=== PATIENT | male | born 1985 | race Caucasian/White ===

== ENCOUNTER 2018-08-28 08:05 | Day surgery (SDC) | payer OTHER ==
[2018-08-18 16:26] VITALS: BMI 28.6
[2018-08-28] MEDS ORDERED: BUPIVACAINE HCL/EPINEPHRINE/PF 30 ML VIAL IJ ONE (10:50)
[2018-08-28] MEDS ORDERED: PROPOFOL 20 ML ONE ×7 (10:59→11:45)
[2018-08-28] MEDS ORDERED: MIDAZOLAM HCL 2 MG/2 ML SINGLE DOSE VIAL ONE (11:00)
[2018-08-28] MEDS ORDERED: DEXAMETHASONE SOD PHOSPHATE 4 MG/1 ML VIAL ONE (11:04)
[2018-08-28] MEDS ORDERED: ONDANSETRON 4 MG/2 ML VIAL ONE (11:04)
[2018-08-28] MEDS ORDERED: ceFAZolin SODIUM 1 GM VIAL ONE (11:04)
[2018-08-28] MEDS ORDERED: LIDOCAINE HCL/PF 2% SDV 5ML VIAL ONE (11:04)
[2018-08-28] MEDS ORDERED: oxyCODONE HCL 5 MG TABLET PO PRN (12:22)
[2018-08-28] MEDS ORDERED: ONDANSETRON 4 MG/2 ML VIAL IVPUSH PRN (12:22)
[2018-08-28] MEDS ORDERED: LACTATED RINGERS SOLUTION 1,000 ML IV SCH (12:30)
--- NOTE | 2018-08-28 12:37 | OP ---
Operative Note - Note: Operative Date: 08/28/18 Pre-Operative Diagnosis: left knee MMT, trochlea cartilage defect Operation: LKA, PMM, microfracture, PRP injection Post-Operative Diagnosis: Same as Pre-op Surgeon: Garth Hill Anesthesia: General Operative Report Dictated: Yes
--- NOTE | 2018-08-28 12:38 | DS ---
Physical Examination Vital Signs: Vital Signs Temperature 98.6 F 08/28/18 08:30 Pulse Rate 53 L 08/28/18 08:30 Respiratory Rate 16 08/28/18 08:30 Blood Pressure 137/90 08/28/18 08:30 O2 Sat by Pulse Oximetry (%) 98 08/28/18 08:30 Discharge Summary Reason For Visit: MEDIAL MENISCAL TEAR LEFT KNEE Condition: Good - Instructions Diet, Activity, Other Instructions: Post Operative Instructions: Knee Arthroscopy Dr Garth Hill 1. Pain following an arthroscopy is variable. Some patients will have more pain than others. You have been provided with a prescription for medication that contains a narcotic. You are not allowed to drive while on this medication. You should NOT take Tylenol (Acetaminophen) when taking the pain medication ( it will result in an overdose). Feel free to take medications such as Ibuprofen or Naprosyn in addition to the pain medicine if you do not have any problems with the NSAID class of medications. You should take aspirin, 81mg twice a day for blood clot prevention 2. You are allowed to remove the bandages and shower in 24 hours You are not allowed to bathe or go swimming until the sutures are removed. Put band-aids on the sutures after your shower and do not put any creams or lotions over the incisions. 3. You are allowed to put all your weight on the leg and bend your knee, 4. Apply ice to the knee for 15 min every hour or so. You may continue this for as many days as you like. 5. Please call the office to schedule a visit to have your sutures removed. 6. If for any reason you believe you may have an infection or are concerned, please feel free to call me. I can be reached through our office number 24 hours a day. 7. Please call our office with any questions; we will review the surgical findings during your post operative visit. Disposition: HOME - Home Medications Comprehensive Discharge Medication List: Ambulatory Orders NK [No Known Home Medication] 08/18/18
[2018-08-28] MEDS ORDERED: ONDANSETRON 4 MG/2 ML VIAL IVPUSH ONE (13:00)
[2018-08-28] MEDS ORDERED: oxyCODONE HCL 5 MG TABLET ONE ×2 (13:32→14:10)
[2018-08-28 13:49] VITALS: TEMP 98.3
[2018-08-28 14:45] VITALS: BP 139/94; PULSE 54
== END 2018-08-28 14:47 | disposition home or self-care (01) ==
LOC: FASU 08:05
PROVIDERS: ATTEND Orthopaedic Surgery
PROC: 0SQC4ZZ Repair Right Knee Joint, Percutaneous Endoscopic Approach (ICD-10-PCS; 2018-08-28)
PROC: [UNRECOGNIZED PROCEDURE] (2018-08-28)
PROC: 0SBC4ZZ Excision of Right Knee Joint, Percutaneous Endoscopic Approach (ICD-10-PCS; principal; 2018-08-28 11:52)
DX: S83.242A Other tear of medial meniscus, current injury, left knee, initial encounter (principal); M24.10 Other articular cartilage disorders, unspecified site; X58.XXXA Exposure to other specified factors, initial encounter; Y93.9 Activity, unspecified; Y92.9 Unspecified place or not applicable
CPT/HCPCS: 0232T; 29879; 29881; 94760